=== PATIENT | male | born 1965 | race Two or more races ===

== ENCOUNTER 2017-09-04 12:31 | Outpatient (CLI) | payer OTHER | END 2017-09-04 12:40 | disposition home or self-care (01) | LOC: RAD 12:31 | DX: Z00.00 Encounter for general adult medical examination without abnormal findings (principal) ==

== ENCOUNTER 2018-01-23 10:28 | Outpatient (CLI) | payer OTHER | END 2018-01-23 10:40 | disposition home or self-care (01) | LOC: RAD 10:28 | DX: M54.89 Other dorsalgia (principal) ==

== ENCOUNTER → 2018-03-15 | Emergency (ER) | payer OTHER ==
[~2018-03-15] VITALS: Ht 177.8 cm; Wt 93.0 kg
[~2018-03-15] MED LIST: FLONASE ALLERG9.9 ML NASAL; VISTARIL50 MG PO
== END | disposition home or self-care (01) ==
LOC: ER 19:37
DX: R06.02 Shortness of breath (principal); R07.89 Other chest pain; F06.4 Anxiety disorder due to known physiological condition; R09.81 Nasal congestion